=== PATIENT | female | born 1975 | race Two or more races ===

== ENCOUNTER 2021-01-12 06:49 | Day surgery (SDC) | payer OTHER ==
[~2021-01-12 06:49] MED LIST: SYNTHROID112 MCG PO
== END 2021-01-12 20:30 | disposition home or self-care (01) ==
LOC: CIR.AMB 06:49
PROVIDERS: ATTEND Surgery
DX: D24.2 Benign neoplasm of left breast (principal); N62 Hypertrophy of breast; Z20.822 Contact with and (suspected) exposure to COVID-19